=== PATIENT | male | born 1950 | race Caucasian/White ===

== ENCOUNTER 2018-04-10 06:54 | Day surgery (SDC) | payer OTHER ==
[2018-04-10] MEDS ORDERED: CEFAZOLIN 1 GM INJ (07:00)
[2018-04-10] MEDS: SOD CHLORIDE 0.9% 1,000 ML IV (07:00)
[2018-04-10] MEDS ORDERED: CEFAZOLIN 2 GM/50 ML (PMX) 50 ML IVPB (07:00)
[2018-04-10 08:46] LABS: ADD MAN DIFF? NO
[2018-04-10 08:48] LABS: BASOPHIL # 0.1 10^3/ul (0.0-0.1); EOSINOPHILS # 0.3 10^3/ul (0.0-0.5); HEMATOCRIT 42.5 % (42.0-52.0); HEMOGLOBIN 14.4 g/dl (14.0-18.0); LYMPHOCYTES # 1.2 10^3/ul (0.8-2.9); LYMPHOCYTES % 24.5 % (15.0-51.0); MEAN CORPUSCULAR HEMOGLOBIN 29.9 pg (29.0-33.0); MEAN CORPUSCULAR HGB CONC 33.9 g/dl (32.0-37.0); MEAN CORPUSCULAR VOLUME 88.2 fl (82.0-101.0); MEAN PLATELET VOLUME 9.7 fl (7.4-10.4); MONOCYTE # 0.4 10^3/ul (0.3-0.9); MONOCYTES % 8.7 % (0.0-11.0); NEUTROPHILS % 60.4 % (39.0-77.0); PLATELET COUNT 192 10^3/UL (140-415); RED BLOOD COUNT 4.82 10^6/ul (4.70-6.10); RED CELL DISTRIBUTION WIDTH 12.4 % (11.5-14.5)
[2018-04-10 09:07] LABS: INR 0.95; PROTIME 12.8 Sec (11.9-14.9)
[2018-04-10 09:08] LABS: PARTIAL THROMBOPLASTIN TIME 31.2 Sec (25.0-35.0)
[2018-04-10] MEDS ORDERED: LIDOCAINE 2% (SDV) 5 ML INJ (09:08)
[2018-04-10] MEDS ORDERED: PROPOFOL 20 ML (09:08)
[2018-04-10] MEDS ORDERED: METOCLOPRAMIDE 10 MG INJ (09:08)
[2018-04-10 09:09] LABS: ALANINE AMINOTRANSFERASE 20 IU/L (13-69); ALBUMIN 3.8 g/dl (3.3-4.9); ALBUMIN/GLOBULIN RATIO 1.31; ALKALINE PHOSPHATASE 59 IU/L (42-121); ANION GAP 12 (8-16); ASPARTATE AMINO TRANSFERASE 22 IU/L (15-46); BILIRUBIN,INDIRECT 0.7 mg/dl (0-1.1); BILIRUBIN,TOTAL 0.7 mg/dl (0.2-1.3); BLOOD UREA NITROGEN 18 mg/dl (7-20); CALCIUM 8.8 mg/dl (8.4-10.2); CARBON DIOXIDE 31 mmol/L (21-31); CHLORIDE 108 mmol/L (97-110); CREATININE 0.69 mg/dl (0.61-1.24); GLUCOSE 87 mg/dl (70-220); POTASSIUM 4.2 mmol/L (3.5-5.1); SODIUM 147 mmol/L (135-144); TOTAL PROTEIN 6.7 g/dl (6.1-8.1)
[2018-04-10] MEDS ORDERED: FENTAnyl 50 MCG/ML VIAL (09:09)
[2018-04-10] MEDS ORDERED: MIDAZOLAM 1 MG/ML 2 ML INJ (09:09)
[2018-04-10] MEDS ORDERED: hydrALAzine 20 MG INJ IV (10:30)
[2018-04-10] MEDS ORDERED: LABETALOL HCL 20MG INJ IV (10:30)
[2018-04-10] MEDS ORDERED: DIPHENHYDRAMINE 50 MG INJ IV (10:30)
[2018-04-10] MEDS ORDERED: FENTAnyl 50 MCG/ML VIAL IV ×2 (10:30)
[2018-04-10] MEDS ORDERED: HYDROmorphONE 1 MG/5 ML IV SYRINGE IV ×2 (10:30)
[2018-04-10] MEDS ORDERED: ONDANSETRON 4 MG INJ IV (10:30)
[2018-04-10] MEDS ORDERED: KETOROLAC 30 MG INJ IV (10:30)
[2018-04-10] MEDS ORDERED: MEPERIDINE 25 MG INJ IV (10:30)
[2018-04-10] MEDS: BUPIVACAINE 0.5%/EPI (SDV) 30 ML INJ (11:09)
== END 2018-04-10 17:45 | disposition home or self-care (01) ==
LOC: SDS 06:54
DX: D17.0 Benign lipomatous neoplasm of skin and subcutaneous tissue of head, face and neck (principal); I10 Essential (primary) hypertension
CPT/HCPCS: 14040; 71045; 80053; 85025; 85610; 85730; 88307; 93005